=== PATIENT | male | born 1970 | race Caucasian/White ===

== ENCOUNTER 2020-08-06 17:40 | Outpatient (CLI) | payer BC ==
--- NOTE | 2020-08-06 18:32 | XRAY Report ---
PROCEDURE: Chest 2 View X-Ray INDICATIONS: U07.1, R07.89, J81.1, J40 TECHNIQUE: 2 views of the chest. COMPARISON: None. FINDINGS: Surgical changes and devices: None. Lungs and pleura: No pleural effusions or pneumothorax. Lungs are clear. Mediastinum: Mediastinal contours are normal. Heart size is normal. Bones and chest wall: No suspicious bony abnormalities. Soft tissues appear unremarkable. IMPRESSION: 1. No acute cardiopulmonary disease. Reviewed by: Dave Ying MD on 08/06/2020 6:31 PM PDT Approved by: Dave Ying MD on 08/06/2020 6:31 PM PDT Station ID: [id number]
== END 2020-08-06 17:41 | disposition home or self-care (01) ==
LOC: DI 17:40
PROVIDERS: ATTEND Internal Medicine
DX: U07.1 COVID-19 (principal); R07.89 Other chest pain; J81.1 Chronic pulmonary edema; J40 Bronchitis, not specified as acute or chronic

== ENCOUNTER 2021-03-24 10:46 | Day surgery (SDC) | payer OTHER, BC ==
[2021-03-24] MEDS ORDERED: LACTATED RINGERS 1,000 ML IV ONE ×2 (11:44→12:50)
[2021-03-24] MEDS ORDERED: PROPOFOL 500 MG/50 ML 500 MG/50 ML VIAL ONE (12:03)
[2021-03-24] MEDS ORDERED: fentaNYL 100 MCG/2 ML VIAL ONE (12:06)
[2021-03-24] MEDS ORDERED: MIDAZOLAM 2 MG/2 ML VIAL ONE (12:06)
--- NOTE | 2021-03-24 12:10 | ANESTHESIA ---
Pre-Anesthesia VS, & Labs - Diagnosis screening exam - Procedure colonoscopy Vital Signs: Temp Pulse Resp BP Pulse Ox 37 C 104 H 12 160/108 H 97 03/24/21 11:10 03/24/21 11:10 03/24/21 11:10 03/24/21 11:10 03/24/21 11:10 Height: 5 ft 7 in Weight (kg): 102 kg Body Mass Index: 35.2 BMI Classification: Obese - NPO >8 hours Home Medications and Allergies Home Medications: Ambulatory Orders Lisinopril [Zestril] 20 mg PO DAILY 03/24/21 Lisinopril [Zestril] 20 mg PO DAILY 03/24/21 Allergies/Adverse Reactions: Allergies Allergy/AdvReac Type Severity Reaction Status Date / Time No Known Drug Allergies Allergy Verified 03/24/21 11:04 Anes History & Medical History - Anesthetic History Anesthesia Complications: reports: No previous complications - Medical History Cardiovascular: reports: Hypertension Pulmonary: reports: Sleep apnea (has not had sleep study, but snores.) Gastrointestinal: reports: None Urinary: reports: Other Neuro: reports: None Musculoskeletal: reports: None Endocrine/Autoimmune: reports: None Blood Disorders: reports: None Skin: reports: None Smoking Status: Never smoker Psychosocial: reports: Anxiety (takes xanax prn), Alcohol (4-5 shots whiskey per week) History of Cancer?: No - Surgical History Gynecologic: reports: Breast reduction Exam General: Alert, Oriented x3, Cooperative, No acute distress Dental: WNL Mouth Openin Fingerbreadth Neck Mobility: Normal Mallampati classification: II Thyromental Distance: 4-6 cm Mental/Cognitive Status: Alert/Oriented X3, Normal for patient Plan Anesthesia Type: General, Total IV Consent for Procedure(s) Verified and Reviewed: Yes Code Status: Attempt Resuscitation ASA classification: 2-Mild systemic disease Is this case an emergency?: No
--- NOTE | 2021-03-24 13:04 | ANESTHESIA POST OP EVALUATION ---
Anesthesia Post Eval - Post Anesthesia Eval Vitals: Last Vital Signs Temp 37.1 C 03/24/21 12:50 Pulse 99 03/24/21 12:59 Resp 16 03/24/21 12:59 BP 141/90 H 03/24/21 12:59 Pulse Ox 94 03/24/21 12:59 CV Function Including HR & BP: Stable Pain Control: Satisfactory Nausea & Vomiting: Negative Mental Status: Baseline Respiratory Status: Airway Patent Hydration Status: Satisfactory Anesthesia Complications: None
[2021-03-24 13:12] VITALS: BP 139/104
== END 2021-03-24 10:47 | disposition home or self-care (01) ==
LOC: SDS 10:46
PROVIDERS: ATTEND Surgery
PROC: 0DBN8ZZ Excision of Sigmoid Colon, Via Natural or Artificial Opening Endoscopic (ICD-10-PCS; principal; 2021-03-24 12:15)
DX: Z12.11 Encounter for screening for malignant neoplasm of colon (principal); D12.5 Benign neoplasm of sigmoid colon; K64.8 Other hemorrhoids; K64.4 Residual hemorrhoidal skin tags; Z20.822 Contact with and (suspected) exposure to COVID-19; E66.9 Obesity, unspecified; Z68.35 Body mass index [BMI] 35.0-35.9, adult; R06.83 Snoring; F41.9 Anxiety disorder, unspecified
CPT/HCPCS: 45385; 87635; J7120